=== PATIENT | male | born 1975 | race African-American/Black ===

== ENCOUNTER 2016-09-24 10:16 | Emergency (ER) | payer SELFPAY ==
[~2016-09-24 10:16] MED LIST: METR-1 PO; Z.0.NO CURRENT MEDS
[2016-09-24 10:19] VITALS: BP 140/69; PULSE 76; RESP 15; TEMP 98.2; O2SAT 98
[2016-09-24] MEDS ORDERED: IBUP800T23 PO (11:27)
[2016-09-24] MEDS ORDERED: CYCL1TAB29 PO (11:27)
--- NOTE | 2016-09-24 11:28 | PD ---
HPI Chief Complaint: Back/ Neck Pain or Injury Time Seen by Provider: 11:25 Travel History International Travel<30 days: No Contact w/Intl Traveler<30days: No Traveled to known affect area: No History of Present Illness HPI 41-year-old male presents to the emergency Department with complaint of right- sided low back pain since Friday. Reports a lot of heavy lifting on Friday while at work and then coming home and having the back pain. Reports worsening throughout the weekend. Pain is worse when standing up straight and with certain movements. No known relieving factors. Has tried taking Tylenol with minimal relief. Has not tried any other treatments to alleviate his symptoms. Denies fever, chills, nausea, vomiting, abdominal pain. Denies dysuria, hematuria. Denies change in stool. Reports a numbness and pain feeling to his right leg. Denies loss of sensation, decreased range of motion, decreased strength bilateral lower extremities. Denies IV drug use. Denies cancer. No known allergies. No other modifying factors or associated signs and symptoms. PFSH Past Medical History Diminished Hearing: No Social History Alcohol Use: Yes (X3 PER MONTH/2 DRINKS/LAST INTAKE 06/23/07) Tobacco Use: Yes (1/2 PPD STARTED AGE 29) Substance Use: Yes (MARIJUANA 1 JOINT DAILY/LAST USED THIS AM) Allergies-Medications (Allergen,Severity, Reaction): Coded Allergies: No Known Allergies (Verified , 09/24/16) Reported Meds & Prescriptions Reported Meds & Active Scripts Active Ibuprofen 800 Mg Tab 800 Mg PO Q6HR PRN Flexeril (Cyclobenzaprine HCl) 10 Mg Tab 10 Mg PO TID PRN Review of Systems Except as stated in HPI: all other systems reviewed are Neg Physical Exam Narrative GENERAL: Well-nourished, well-developed male patient, in no acute distress; afebrile, nontoxic-appearing SKIN: Warm and dry. HEAD: Atraumatic. Normocephalic. EYES: Pupils equal and round. No scleral icterus. No injection or drainage. ENT: Mucosa pink and moist. Airway patent. NECK: Trachea midline. CARDIOVASCULAR: Regular rate. RESPIRATORY: No accessory muscle use. GASTROINTESTINAL: Flat. MUSCULOSKELETAL: Bilateral lower extremities supple and non-tense with 2+ pedal pulses and sensory intact; with full range of motion and 5/5 strength. Active dorsiflexion and extension of bilateral feet. Bilateral straight leg raise is negative for low back pain. Ambulatory with normal gait in room. Sitting up in bed at 90. No obvious deformities. No clubbing. No cyanosis. No edema. BACK: No midline point tenderness on palpation of the lumbar spine. No step- offs. Tenderness on palpation of right paraspinal lumbar area. No obvious deformities. NEUROLOGICAL: Awake and alert. Oriented 3. No obvious cranial nerve deficits. Motor grossly within normal limits. Normal speech. Moves all extremities. 5/5 strength to all extremities. Sensory intact. PSYCHIATRIC: Appropriate mood and affect; insight and judgment normal. Data Data Last Documented VS Vital Signs Date Time Temp Pulse Resp B/P Pulse Ox O2 Delivery O2 Flow Rate FiO2 09/24/16 10:19 98.2 76 15 140/69 98 Orders Ibuprofen (Motrin) (09/24/16 11:30) Cyclobenzaprine (Flexeril) (09/24/16 11:30) [facility] Medical Decision Making Medical Screen Exam Complete: Yes Emergency Medical Condition: Yes Medical Record Reviewed: Yes Differential Diagnosis Low back strain, acute low back pain, sciatica Narrative Course 41-year-old male physical examination consistent with low back strain, right- sided sciatica, and acute low back pain. Denies IV drug use or cancer. Patient is afebrile and nontoxic-appearing. He denies fever, chills, nausea, vomiting. Patient is ambulatory in the room with a normal gait. No midline point tenderness on palpation of the lumbar spine. No step-offs. Ibuprofen and Flexeril administered in the ER. Ibuprofen and Flexeril prescribed for home. Patient verbalizes understanding and agreement with treatment plan. Patient is medically cleared and stable for discharge. Discussed reasons to return to the emergency department. Instructed patient to follow up with primary care provider. Patient agrees with treatment plan. The patients vital signs are stable and the patient is stable for outpatient follow-up and treatment. Patient discharged home, stable and in no acute distress. Diagnosis Primary Impression: Low back strain Qualified Code: S39.012A - Low back strain, initial encounter Additional Impression: Acute low back pain with right-sided sciatica Qualified Code: M54.41 - Acute right-sided low back pain with right-sided sciatica Referrals: Primary Care Physician Patient Instructions: Acute Low Back Pain (ED), General Instructions, Low Back Strain (ED), Lower Back Exercises (ED), Sciatica (ED) Departure Forms: Work Release Enter return to work date: Sep 27, 2016 Additional Instructions: Tylenol or ibuprofen as directed and as needed for pain Flexeril as prescribed and as needed for muscle spasms Heating pad and/or ice to affected area to reduce pain Avoid aggravating activities; increase activity as tolerated Follow-up with primary care provider Return to emergency department immediately with worsening of symptoms Med/Other Pt SpecificInfo: Prescription(s) given Scripts Ibuprofen 800 Mg [id number] Mg PO Q6HR PRN (PAIN) #30 TAB Ref 0 Prov:Lizzette Reynolds 09/24/16 Cyclobenzaprine (Flexeril)10 Mg Tab10 Mg PO TID PRN (MUSCLE SPASM) #30 TAB Ref 0 Prov:Lizzette Reynolds 09/24/16 Disposition: 01 DISCHARGE HOME Condition: Stable Lizzette Reynolds Sep 24, 2016 11:28
[2016-09-24] MEDS ORDERED: CYCLOBENZAPRINE HCL 10 MG TAB PO ONE (11:30)
[2016-09-24] MEDS ORDERED: IBUPROFEN 800 MG TAB PO ONE (11:30)
== END 2016-09-24 11:52 | disposition home or self-care (01) ==
LOC: NETRI 10:16
DX: S39.012A Strain of muscle, fascia and tendon of lower back, initial encounter (principal); M54.41 Lumbago with sciatica, right side; R20.0 Anesthesia of skin; Z72.0 Tobacco use; X50.0XXA Overexertion from strenuous movement or load, initial encounter; Y93.89 Activity, other specified; Y99.0 Civilian activity done for income or pay
CPT/HCPCS: 99283

== ENCOUNTER 2016-12-07 06:20 | Emergency (ER) | payer OTHER ==
[~2016-12-07] VITALS: Ht 182.9 cm; Wt 75.0 kg
[~2016-12-07 06:20] MED LIST changes: +CYCL1TAB29 PO; +IBUP800T23 PO; -METR-1 PO; -Z.0.NO CURRENT MEDS
[2016-12-07 06:30] VITALS: BP 134/78; PULSE 78; RESP 16; TEMP 98.1; O2SAT 97
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
[2016-12-07 07:00] LABS: AUTOMATED NEUTROPHIL # 6.6 TH/MM3 (1.8-7.7); BASOPHIL # 0.1 TH/MM3 (0-0.2); BASOPHIL % 0.9 % (0.0-2.0); EOSINOPHIL % 0.1 % (0.0-4.0); HEMO FLAGS DIFF FINAL; LYMPH % 18.9 % (9.0-44.0); LYMPHOCYTE # 1.7 TH/MM3 (1.0-4.8); MEAN CELL VOLUME 88.2 FL (80.0-100.0); MEAN CORPUSCULAR HEMOGLOBIN 29.5 PG (27.0-34.0); MEAN CORPUSCULAR HGB CONC 33.4 % (32.0-36.0); MONO % 7.4 % (0.0-8.0); NEUT % 72.7 % (16.0-70.0); PLATELET COUNT 245 TH/MM3 (150-450); RED BLOOD COUNT 4.99 MIL/MM3 (4.50-5.90); WHITE BLOOD COUNT 9.1 TH/MM3 (4.0-11.0)
[2016-12-07 07:16] LABS: ALT (GPT) 26 U/L (12-78); ANION GAP 11 MEQ/L (5-15); BACTERIA, URINE RARE /hpf; BICARBONATE 25.4 MEQ/L (21.0-32.0); BLOOD UREA NITROGEN 17 MG/DL (7-18); BLOOD, URINE NEG (NEG); CHLORIDE 105 MEQ/L (98-107); GLOMERULAR FILTRATION RATE 88 ML/MIN (>89); GLUCOSE,URINE NEG (NEG); KETONE, URINE NEG (NEG); MUCUS URINE FEW /lpf (OCC); NITRITE,URINE NEG (NEG); PH, URINE 5.5 (5.0-8.5); POTASSIUM 3.9 MEQ/L (3.5-5.1); SODIUM (NA) 141 MEQ/L (136-145); TRANSITIONAL EPI CELLS, URINE <1 /hpf; URINE COLOR YELLOW (YELLW/STRAW)
[2016-12-07 07:17] LABS: AST (GOT) 16 U/L (15-37)
[2016-12-07 07:19] LABS: ALKALINE PHOSPHATASE 74 U/L (45-117); COMMENT (UR) CULT NOT INDICATED; CULTURE IF INDICATED CULT NOT INDICATED; TOTAL BILIRUBIN ADULT 0.4 MG/DL (0.2-1.0)
[2016-12-07 07:23] LABS: AMPHETAMINE, URINE NEG (NEG); BARBITURATES, URINE NEG (NEG); COCAINE, URINE NEG (NEG)
[2016-12-07 07:50] LABS: ACETAMINOPHEN LESS THAN 2.0 MCG/ML (10.0-30.0)
[2016-12-07 14:21] VITALS: BP 147/73; PULSE 54; RESP 18; TEMP 98.3; O2SAT 94
== END 2016-12-07 16:35 ==
LOC: NEPD 06:20 → NEPJ 16:35
DX: R44.0 Auditory hallucinations (principal); F17.210 Nicotine dependence, cigarettes, uncomplicated; F12.90 Cannabis use, unspecified, uncomplicated; Z04.6 Encounter for general psychiatric examination, requested by authority
CPT/HCPCS: 80053; 80307; 81001; 85025; 99285

== ENCOUNTER 2017-01-01 17:48 | Emergency (ER) | payer SELFPAY ==
[~2017-01-01] VITALS: Ht 175.3 cm; Wt 65.0 kg
[2017-01-01 17:49] VITALS: BP 145/98; PULSE 62; RESP 16; TEMP 98; O2SAT 98
[2017-01-01] MEDS ORDERED: AMOX500C PO (18:36)
[2017-01-01] MEDS ORDERED: IBUP800T23 PO (18:36)
--- NOTE | 2017-01-01 18:37 | PD ---
HPI Chief Complaint: Oral / Dental Pain or Problem Time Seen by Provider: 18:35 Travel History International Travel<30 days: No Contact w/Intl Traveler<30days: No Traveled to known affect area: No History of Present Illness HPI 41-year-old male presents to emergency department with complaint of left lower dental pain times one month with worsening of the past few days. Denies fever, vomiting. Denies facial edema, erythema. Denies throat pain. Denies difficulty swallowing. Has taken Tylenol for symptom management. No known allergies. Has no other medical complaints. No other modifying factors or associated signs and symptoms. PFSH Past Medical History Diminished Hearing: No Social History Alcohol Use: Yes (X3 PER MONTH/2 DRINKS/LAST INTAKE 06/23/07) Tobacco Use: Yes (1/2 PPD STARTED AGE 29) Substance Use: Yes (MARIJUANA 1 JOINT DAILY/LAST USED THIS AM) Allergies-Medications (Allergen,Severity, Reaction): Coded Allergies: No Known Allergies (Verified , 01/01/17) Reported Meds & Prescriptions Reported Meds & Active Scripts Active Amoxicillin 500 Mg Cap 500 Mg PO BID 10 Days Ibuprofen 800 Mg Tab 800 Mg PO Q6HR PRN Review of Systems Except as stated in HPI: all other systems reviewed are Neg Physical Exam Narrative GENERAL: Well-nourished, well-developed male patient, in no acute distress; afebrile, nontoxic-appearing SKIN: Warm and dry. HEAD: Atraumatic. Normocephalic. No facial edema, erythema, tenderness on palpation. No lymphadenopathy. EYES: Pupils equal and round. No scleral icterus. No injection or drainage. ENT: Mucosa pink and moist. No erythema or exudates. No uvular edema. No uvular , palatal, or tonsillar deviation. Airway patent. MOUTH: Mucous membranes moist, no lesions, tongue and gums appear normal. Tooth ##17 with tenderness on palpation; with large dental cavity. Surrounding gingiva is without erythema, edema, drainage. No obvious abscess noted. NECK: Trachea midline. No lymphadenopathy. CARDIOVASCULAR: Regular rate. RESPIRATORY: No accessory muscle use. GASTROINTESTINAL: Flat. MUSCULOSKELETAL: No obvious deformities. No clubbing. No cyanosis. No edema. NEUROLOGICAL: Awake and alert. Oriented 3. No obvious cranial nerve deficits. Motor grossly within normal limits. Normal speech. PSYCHIATRIC: Appropriate mood and affect; insight and judgment normal. Data Data Last Documented VS Vital Signs Date Time Temp Pulse Resp B/P Pulse Ox O2 Delivery O2 Flow Rate FiO2 01/01/17 17:49 98.0 62 16 145/98 98 Room Air MDM Medical Decision Making Medical Screen Exam Complete: Yes Emergency Medical Condition: Yes Medical Record Reviewed: Yes Differential Diagnosis Dentalgia, dental abscess, infected dental cavity, dental caries Narrative Course 41-year-old male with dentalgia to tooth #17. No facial edema or erythema. Patient is afebrile and nontoxic-appearing. Emergency dental information sheet provided in the ER. Amoxicillin and ibuprofen prescribed for home. Instructed patient to follow up with primary care provider. Patient verbalizes understanding and agreement with treatment plan. Patient is medically cleared and stable for discharge. Discussed reasons to return to the emergency department. Patient agrees with treatment plan. The patients vital signs are stable and the patient is stable for outpatient follow-up and treatment. Patient discharged home, stable and in no acute distress. Diagnosis Primary Impression: Dentalgia Referrals: Dentist Primary Care Physician Patient Instructions: Dental Abscess (ED), Dental Caries (ED), General Instructions, Toothache (ED) Departure Forms: Tests/Procedures, Work Release Enter return to work date: Jan 02, 2017 Additional Instructions: Complete full course of antibiotics Ibuprofen or Tylenol as directed and as needed to reduce pain and inflammation Warm or cool compresses to the affected area Follow-up with dentist Follow-up with primary care provider Return to emergency department immediately with worsening of symptoms Med/Other Pt SpecificInfo: Prescription(s) given Scripts Amoxicillin 500 Mg [id number] Mg PO BID 10 Days Ref 0 Prov:Lizzette Reynolds 01/01/17 Ibuprofen 800 Mg [id number] Mg PO Q6HR PRN (PAIN) #30 TAB Ref 0 Prov:Lizzette Reynolds 01/01/17 Disposition: 01 DISCHARGE HOME Condition: Stable Lizzette Reynolds Jan 01, 2017 18:37
== END 2017-01-01 18:46 | disposition home or self-care (01) ==
LOC: NEPK 17:48
DX: K08.89 Other specified disorders of teeth and supporting structures (principal); F17.210 Nicotine dependence, cigarettes, uncomplicated; F12.10 Cannabis abuse, uncomplicated
CPT/HCPCS: 99283